=== PATIENT | female | born 1985 | race Hispanic/Latino ===

== ENCOUNTER 2020-10-29 19:10 | Emergency (ER) | payer SELFPAY ==
--- NOTE | 2020-10-29 22:39 | Emergency Department Report ---
ED ENT HPI - General Chief complaint: Dental/Oral Stated complaint: TOOTH PAIN Time Seen by Provider: 10/29/20 22:17 Source: patient Mode of arrival: Ambulatory Limitations: No Limitations - History of Present Illness Initial comments: Patient is a 35-year-old female presents emergency room with complaints of right dental pain that began yesterday. She states that she has had cavities in this right lower region for approximately 3 to 4 years. She states that she has not seen a dentist in multiple years. She states that she attempted calling but was unable to get an appointment till next week. She states that today she noticed some right-sided jaw swelling. She states that she had a subjective fever. She denies any difficulty swallowing, nausea, vomiting, diarrhea, difficulty breathing. Past medical history of hypothyroidism and anemia. No allergies to medications. Last menstrual cycle a week ago. - Related Data Previous Rx's Medication Instructions Recorded Last Taken Type Chlorhexidine Mouthwash [Peridex] 15 ml MM BID #1 bottle 10/29/20 Unknown Rx Naproxen [EC-Naprosyn] 500 mg PO BID PRN #14 tablet. 10/29/20 Unknown Rx Penicillin Vk [Veetids TAB] 500 mg PO QID 7 Days #56 tablet 10/29/20 Unknown Rx Allergies Allergy/AdvReac Type Severity Reaction Status Date / Time No Known Allergies Allergy Unverified 10/29/20 22:00 ED Dental HPI - General Chief complaint: Dental/Oral Stated complaint: TOOTH PAIN Time Seen by Provider: 10/29/20 22:17 Source: patient Mode of arrival: Ambulatory Limitations: No Limitations - Related Data Previous Rx's Medication Instructions Recorded Last Taken Type Chlorhexidine Mouthwash [Peridex] 15 ml MM BID #1 bottle 10/29/20 Unknown Rx Naproxen [EC-Naprosyn] 500 mg PO BID PRN #14 tablet. 10/29/20 Unknown Rx Penicillin Vk [Veetids TAB] 500 mg PO QID 7 Days #56 tablet 10/29/20 Unknown Rx Allergies Allergy/AdvReac Type Severity Reaction Status Date / Time No Known Allergies Allergy Unverified 10/29/20 22:00 ED Review of Systems ROS: Stated complaint: TOOTH PAIN Other details as noted in HPI Comment: All other systems reviewed and negative ED Past Medical Hx - Past Medical History Previous Medical History?: Yes Additional medical history: Anemia. Hypothyroidism - Surgical History Past Surgical History?: No - Social History Smoking Status: Never Smoker Substance Use Type: None - Medications Home Medications: Home Medications Medication Instructions Recorded Confirmed Last Taken Type Chlorhexidine Mouthwash [Peridex] 15 ml MM BID #1 bottle 10/29/20 Unknown Rx Naproxen [EC-Naprosyn] 500 mg PO BID PRN #14 tablet. 10/29/20 Unknown Rx Penicillin Vk [Veetids TAB] 500 mg PO QID 7 Days #56 tablet 10/29/20 Unknown Rx ED Physical Exam - General Limitations: No Limitations General appearance: alert, in no apparent distress - Head Head exam: Present: atraumatic, normocephalic - Eye Eye exam: Present: normal appearance - ENT ENT exam: Present: normal orophraynx (no muffled voice, no submandibular edema), mucous membranes moist, other (very poor dentition, multiple dental carries present, there is dental carries with decay present to the right lower back molars with missing teeth, there is edema of the gums, no obvious area of fluctuance or single area of induration, uvula is midline, no uvular edema or deviation, no trismus) - Respiratory Respiratory exam: Absent: respiratory distress, accessory muscle use - Neurological Exam Neurological exam: Present: alert, oriented X3 - Psychiatric Psychiatric exam: Present: normal affect, normal mood - Skin Skin exam: Present: warm, dry, intact ED Course Vital Signs 10/29/20 10/29/20 21:44 22:56 Temperature 98.7 F 98.2 F Pulse Rate 79 72 Respiratory 18 16 Rate Blood Pressure 144/90 Blood Pressure 112/65 [Left] O2 Sat by Pulse 98 100 Oximetry ED Medical Decision Making - Medical Decision Making Patient is a 35-year-old female presents emergency room with complaints of right dental pain that began yesterday. She states that she has had cavities in this right lower region for approximately 3 to 4 years. She states that she has not seen a dentist in multiple years. She states that she attempted calling but was unable to get an appointment till next week. She states that today she noticed some right-sided jaw swelling. She states that she had a subjective fever. She denies any difficulty swallowing, nausea, vomiting, diarrhea, difficulty breathing. Past medical history of hypothyroidism and anemia. No allergies to medications. Last menstrual cycle a week ago. Vitals are stable. On exam:very poor dentition, multiple dental carries present, there is dental carries with decay present to the right lower back molars with missing teeth, there is edema of the gums, no obvious area of fluctuance or single area of induration, uvula is midline, no uvular edema or deviation, no trismus, no muffled voice, no submandibular edema. Examination appears consistent with dental caries and gingivitis. No obvious appreciable dental abscess at this time, no facial cellulitis or facial abscess, no signs of Lud[place]igs. Patient given prescription for penicillin VK, naproxen, chlorhexidine mouthwash. Advised patient Please use medication as prescribed. Follow-up with a dentist. It is very important that you follow-up. Return to emergency room for new or worsening symptoms. Critical care attestation.: If time is entered above; I have spent that time in minutes in the direct care of this critically ill patient, excluding procedure time. ED Disposition Clinical Impression: Dental caries, Gingivitis Disposition: TO HOME OR SELFCARE Is pt being admited?: No Does the pt Need Aspirin: No Condition: Stable Additional Instructions: Please use medication as prescribed. Follow-up with a dentist. It is very important that you follow-up. Return to emergency room for new or worsening symptoms. Prescriptions: Naproxen [EC-Naprosyn] 500 mg PO BID PRN #14 tablet.dr DUMONT Reason: pain Chlorhexidine Mouthwash [Peridex] 15 ml MM BID #1 bottle Penicillin Vk [Veetids TAB] 500 mg PO QID 7 Days #56 tablet Referrals: PRIMARY CARE, [Primary Care Provider] - 3-5 Days [facility] [Outside] - 3-[address] [facility] [place] [Outside] - 3-5 Days [facility] [Outside] - 3-5 Days [facility] [Outside[facility] - 3-5 Days [facility], [LAB/CONTRACT] - 3-5 Days [facility] [Provider Group] - 3-5 Days Time of Disposition: 22:37 Print Language: SALVADOREAN
[2020-10-29 22:57] VITALS: BP 112/65
== END 2020-10-29 22:58 | disposition home or self-care (01) ==
LOC: ED 19:10
DX: K05.10 Chronic gingivitis, plaque induced (principal); K02.9 Dental caries, unspecified; D64.9 Anemia, unspecified; Z79.899 Other long term (current) drug therapy
CPT/HCPCS: 99282